=== PATIENT | female | born 1980 | race Caucasian/White ===

== ENCOUNTER 2024-12-06 06:38 | Day surgery (SDC) | payer OTHER ==
[~2024-12-06] VITALS: Ht 165.1 cm; Wt 81.8 kg
[2024-12-06] MEDS ORDERED: SEMA0.258 INJ (06:53)
[2024-12-06] MEDS ORDERED: MONT-40 PO (06:53)
[2024-12-06] MEDS ORDERED: FLUT16SP NASAL (06:53)
[2024-12-06] MEDS ORDERED: SODIUM CHLORIDE 0.9% 1,000 ML ONE (07:03)
[2024-12-06] MEDS: SODIUM CHLORIDE 0.9% 1,000 ML IV ONE (07:51)
[2024-12-06] MEDS ORDERED: MIDAZOLAM HCL 2 MG/2 ML VIAL ONE (08:12)
[2024-12-06] MEDS ORDERED: FentaNYL CITRATE PF 100 MCG/2 ML VIAL ONE (08:12)
[2024-12-06] MEDS ORDERED: BENZOCAINE 20% 50 MCG/SPRAY 57 GM ONE (10:00)
[2024-12-06] MEDS ORDERED: LIDOCAINE 2% 11 ML JELLY ONE (10:00)
[2024-12-06] MEDS ORDERED: LIDOCAINE 4% 50 ML SOLUTION ONE (10:00)
[2024-12-06] MEDS ORDERED: ALBUTEROL SULFATE 2.5 MG/0.5 ML NEB SOLUTION NEB ONE (10:00)
[2024-12-06 10:03] VITALS: PULSE 121; RESP 20; O2SAT 97
[2024-12-06 14:11] LABS: GLUCOMETER DEV NAME(LOC) SDS.; GLUCOSE,POINT OF CARE 143 MG/DL (70-110)
== END 2024-12-06 13:40 | disposition home or self-care (01) ==
LOC: SURGERY 06:38
PROVIDERS: ATTEND Internal Medicine Critical Care Medicine
DX: R05.3 Chronic cough (principal); R06.2 Wheezing; R49.0 Dysphonia; R04.2 Hemoptysis; R06.1 Stridor; E11.9 Type 2 diabetes mellitus without complications; E78.00 Pure hypercholesterolemia, unspecified; Z79.84 Long term (current) use of oral hypoglycemic drugs; Z90.710 Acquired absence of both cervix and uterus; Z98.891 History of uterine scar from previous surgery
CPT/HCPCS: 31623; 82962; 84703; 87206; 87101; 87220; 87070; 88108; 31624; 94640; 71045; 87015; J3010; J2250; J2919; J7030; J7613; Z7610